=== PATIENT | male | born 1975 | race Caucasian/White ===

== ENCOUNTER 2018-04-18 19:32 | Emergency (ER) | payer OTHER ==
[2018-04-18 19:39] VITALS: BP 132/98; PULSE 61; TEMP 97.9; BMI 26.4
[2018-04-18 20:05] LABS: PH,URINE 6.5 (4.5-8); URINE APPEARANCE Slightly; URINE BILIRUBIN Negative (NEGATIVE); URINE COLOR Yellow; URINE GLUCOSE (UA) Negative (NEGATIVE); URINE KETONE Negative (NEGATIVE); URINE LEUK ESTERASE TRACE (NEGATIVE); URINE NITRITE Negative (NEGATIVE); URINE PROTEIN 2+ (NEGATIVE); URINE UROBILINOGEN 0.2 (0.2-1.0)
[2018-04-18 20:20] LABS: EPI CELLS FEW /HPF; URINE BACTERIA 1+ /hpf (NEGATIVE); URINE RBC 60-100 /hpf (0-3)
[2018-04-18] MEDS ORDERED: KETOROLAC TROMETHAMINE 30 MG/1 ML VIAL IVPUSH ONE (20:26)
[2018-04-18] MEDS ORDERED: SODIUM CHLORIDE 1,000 ML IV STA (20:26)
--- NOTE | 2018-04-18 20:26 | PDOC ---
History of Present Illness - General History Source: Patient Exam Limitations: No Limitations - History of Present Illness Initial Comments: 04/18/18 21:02 The patient is a 42 year old male with a past medical history of recurrent kidney stones (15 years)here today for evaluation of left flank and abdominal pain. The patient reports that his flank and abdominal pain began a few months ago and has been intermittent but notes that spicy food will cause his pain to flare up. The patient took zantac and pepto bismol which did not provide relief. The patient notes he has been having intermittent hematuria for the past two weeks and was told by his doctor that he has 2 kidney stones on his right side and 2 kidney stones on his left side. He also reports having episodes of constipation and diarrhea. Patient denies headache, lightheadedness. Denies fever, chills. Denies chest pain, shortness of breath. Denies nausea, vomiting, abdominal pain, history of ulcers. Denies lower extremity edema. Denies dysuria, changes in urinary frequency. Allergies: NKA PCP: Parvez Wolff <Denys Galeano - Last Filed: 04/18/18 21:02> <Leticia Pelaez - Last Filed: 04/19/18 04:02> - General Chief Complaint: Pain Stated Complaint: ABD PAIN Time Seen by Provider: 04/18/18 19:34 Past History <Denys Galeano - Last Filed: 04/18/18 21:02> - Past Medical History COPD: No Kidney Stones: Yes - Suicide/Smoking/Psychosocial Hx Smoking Status: No Smoking History: Never smoked Have you smoked in the past 12 months: No Number of Cigarettes Smoked Daily: 0 Information on smoking cessation initiated: No Hx Alcohol Use: No Drug/Substance Use Hx: No <Leticia Pelaez - Last Filed: 04/19/18 04:02> - Past Medical History Allergies/Adverse Reactions: Allergies Allergy/AdvReac Type Severity Reaction Status Date / Time No Known Allergies Allergy Verified 04/18/18 19:34 Home Medications: Ambulatory Orders Bismuth Subsalicylate [Pepto-Bismol -] 262 mg PO ONCE 04/18/18 Oxycodone HCl/Acetaminophen [Percocet 5-325 mg Tablet] 1 tab PO Q6H PRN #12 tablet MDD 3 tabs 01/05/19 Ranitidine HCl [Zantac] 150 mg PO ASDIR 04/18/18 Review of Systems - Review of Systems Able to Perform ROS?: Yes Comments:: 04/18/18 21:03 All systems are reviewed and negative except as noted in the HPI <Denys Galeano - Last Filed: 04/18/18 21:02> *Physical Exam - Vital Signs Last Vital Signs Temp Pulse Resp BP Pulse Ox 97.9 F 61 18 132/98 100 04/18/18 19:32 04/18/18 19:32 04/18/18 19:32 04/18/18 19:32 04/18/18 19:32 - Physical Exam Comments: 04/18/18 21:03 GENERAL: Awake, alert, and fully oriented, in no acute distress HEAD: No signs of trauma EYES: PERRLA, EOMI, sclera anicteric, conjunctiva clear ENT: Auricles normal inspection, hearing grossly normal, nares patent, oropharynx clear without exudates. Moist mucosa NECK: Normal ROM, supple, no lymphadenopathy, JVD, or masses LUNGS: Breath sounds equal, clear to auscultation bilaterally. No wheezes, and no crackles HEART: Regular rate and rhythm, normal S1 and S2, no murmurs, rubs or gallops ABDOMEN: +mild left lower quadrant and left flank tenderness. Soft, normoactive bowel sounds. No guarding, no rebound. No masses EXTREMITIES: Normal range of motion, no edema. No clubbing or cyanosis. No cords, erythema, or tenderness NEUROLOGICAL: Cranial nerves II through XII grossly intact. Normal speech, normal gait SKIN: Warm, Dry, normal turgor, no rashes or lesions noted. <Denys Galeano - Last Filed: 04/18/18 21:02> - Vital Signs Last Vital Signs Temp Pulse Resp BP Pulse Ox 97.9 F 61 18 132/98 100 04/18/18 19:32 04/18/18 19:32 04/18/18 19:32 04/18/18 19:32 04/18/18 19:32 <Leticia Pelaez - Last Filed: 04/19/18 04:02> Moderate Sedation - Procedure Monitoring Vital Signs: Procedure Monitoring Vital Signs Temperature 97.9 F 04/18/18 19:32 Pulse Rate 61 04/18/18 19:32 Respiratory Rate 18 04/18/18 19:32 Blood Pressure 132/98 04/18/18 19:32 O2 Sat by Pulse Oximetry (%) 100 04/18/18 19:32 <Denys Galeano - Last Filed: 04/18/18 21:02> - Procedure Monitoring Vital Signs: Procedure Monitoring Vital Signs Temperature 97.9 F 04/18/18 19:32 Pulse Rate 61 04/18/18 19:32 Respiratory Rate 18 04/18/18 19:32 Blood Pressure 132/98 04/18/18 19:32 O2 Sat by Pulse Oximetry (%) 100 04/18/18 19:32 <Leticia Pelaez - Last Filed: 04/19/18 04:02> ED Treatment Course - LABORATORY CBC & Chemistry Diagram: 04/18/18 20:35 04/18/18 20:35 - ADDITIONAL ORDERS Additional order review: Laboratory Results 04/18/18 20:02 Urine Color Yellow Urine Appearance Slightly Urine pH 6.5 Ur Specific [place] 1.020 Urine Protein 2+ H Urine Glucose (UA) Negative Urine Ketones Negative Urine Blood 3+ H Urine Nitrite Negative Urine Bilirubin Negative Urine Urobilinogen 0.2 Ur Leukocyte Esterase Trace H Urine RBC 60-100 Urine WBC 2-5 Ur Epithelial Cells Few Urine Bacteria 1+ 04/18/18 20:35 RBC 5.27 MCV 84.1 MCHC 32.3 RDW 13.3 MPV 7.6 Neutrophils % 66.4 D Lymphocytes % 23.5 D Monocytes % 7.4 Eosinophils % 2.3 Basophils % 0.4 - Medications Given in the ED: ED Medications Discontinued Medications Generic Name Dose Route Start Last Admin Trade Name Amber PRN Reason Stop Dose Admin Ketorolac Tromethamine 30 mg 04/18/18 20:26 04/18/18 20:42 Toradol Injection - IVPUSH 04/18/18 20:27 30 mg ONCE ONE Administration <Denys Galeano - Last Filed: 04/18/18 21:02> - LABORATORY CBC & Chemistry Diagram: 04/18/18 20:35 04/18/18 20:35 - ADDITIONAL ORDERS Additional order review: Laboratory Results 04/18/18 20:02 Urine Color Yellow Urine Appearance Slightly Urine pH 6.5 Ur Specific [place] 1.020 Urine Protein 2+ H Urine Glucose (UA) Negative Urine Ketones Negative Urine Blood 3+ H Urine Nitrite Negative Urine Bilirubin Negative Urine Urobilinogen 0.2 Ur Leukocyte Esterase Trace H Urine RBC 60-100 Urine WBC 2-5 Ur Epithelial Cells Few Urine Bacteria 1+ <Leticia Pelaez - Last Filed: 04/19/18 04:02> Progress Note - Progress Note Progress Note: Documentation has been prepared under my direction and personally reviewed by me in its entirety. I attest that this documented accurately reflects all work, treatment, procedures and medical decision making performed by me. <Leticia Pelaez - Last Filed: 04/19/18 04:02> *DC/Admit/Observation/Transfer - Attestations Scribe Attestion: 04/18/18 21:03 Documentation prepared by GISELA Martinez, acting as certified medical asst for Leticia Pelaez MD. <Denys Galeano - Last Filed: 04/18/18 21:02> <Leticia Pelaez - Last Filed: 04/19/18 04:02> Diagnosis at time of Disposition: Kidney stone on left side - Discharge Dispostion Disposition: HOME Condition at time of disposition: Stable - Prescriptions Prescriptions: Oxycodone HCl/Acetaminophen [Percocet 5-325 mg Tablet] 1 tab PO Q6H PRN #12 tablet MDD 3 tabs PRN Reason: Severe Pain - Referrals Referrals: Parvez Wolff MD [Primary Care Provider] - Frank Kendall MD., MD [Staff Physician] - - Patient Instructions Printed Discharge Instructions: Kidney Stones -- Adult Additional Instructions: Drink plenty of water Ibuprofen/naproxen/acetaminophen as needed for [id number] pain Percocet 5/325 up to 3 times a day as needed for severe pain Return to ER if you have persistent severe pain/vomiting/fever Follow-up with urologist () within the next 5 days; call office on April 20 to arrange appointment Follow-up with Dr. Wolff as scheduled - Post Discharge Activity
[2018-04-18] MEDS ORDERED: KETOROLAC TROMETHAMINE 30 MG/1 ML VIAL ONE (20:36)
[2018-04-18 20:50] LABS: BASO % 0.4 % (0-2.0); EOS % 2.3 % (0-4.5); HEMATOCRIT 44.3 % (35.4-49); HEMOGLOBIN 14.3 GM/dl (11.7-16.9); LYMPH % 23.5 % (8-40); MCH 27.2 pg (25.7-33.7); MCHC 32.3 g/dl (32.0-35.9); MEAN CELL VOLUME 84.1 fl (80-96); MEAN PLT VOLUME 7.6 fl (7.5-11.1); MONO % 7.4 % (3.8-10.2); NEUT % 66.4 % (42.8-82.8); PLATELET COUNT 244 K/MM3 (134-434); RBC 5.27 M/mm3 (4.00-5.60); RDW 13.3 % (11.9-15.9); WHITE BLOOD COUNT 7.8 K/mm3 (4.0-10.8)
[2018-04-18 21:05] LABS: ALBUMIN 4.3 g/dl (3.5-5.0); ALK PHOS 77 U/L (32-92); ANION GAP 4 MMOL/L (8-16); BILIRUBIN,TOTAL 0.4 mg/dl (0.2-1.0); BLOOD UREA NITROGEN 14 mg/dl (7-18); CHLORIDE 102 mmol/L (98-107); CO2 28 mmol/L (22-28); CREATININE 0.7 mg/dl (0.6-1.3); GLUCOSE,RANDOM 104 mg/dl (74-106); SGOT/AST 29 U/L (10-42); SGPT/ALT 61 U/L (10-40); SODIUM 134 mmol/L (136-145); TOT PROT 7.5 g/dl (6.4-8.3)
== END 2018-04-18 22:09 | disposition home or self-care (01) ==
LOC: FER 19:32
PROC: 3E0333Z Introduction of Anti-inflammatory into Peripheral Vein, Percutaneous Approach (ICD-10-PCS; principal; 2018-04-18)
PROC: 3E0337Z Introduction of Electrolytic and Water Balance Substance into Peripheral Vein, Percutaneous Approach (ICD-10-PCS; 2018-04-18)
DX: N20.0 Calculus of kidney (principal)
CPT/HCPCS: 36415; 74176; 80053; 81003; 81015; 85025; 99283-25; J7030

== ENCOUNTER 2021-07-05 05:10 | Day surgery (SDC) | payer OTHER ==
[2021-07-02 09:23] VITALS: BMI 27.3
[2021-07-05] MEDS ORDERED: ONDANSETRON 4 MG/2 ML VIAL IVPUSH PRN (12:41)
[2021-07-05] MEDS ORDERED: OXYMETAZOLINE 0.05% NASAL SOLUTION 15 ML BOTTLE NS SCH (12:45)
[2021-07-05] MEDS ORDERED: LACTATED RINGERS SOLUTION 1,000 ML IV SCH (12:45)
[2021-07-05 12:55] VITALS: TEMP 97.8
[2021-07-05 14:18] VITALS: BP 132/88; PULSE 73
== END 2021-07-05 14:28 | disposition home or self-care (01) ==
LOC: JASU-SURG 05:10
PROVIDERS: ATTEND Otolaryngology
PROC: 0CJS8ZZ Inspection of Larynx, Via Natural or Artificial Opening Endoscopic (ICD-10-PCS; principal; 2021-07-05 12:00)
DX: G47.33 Obstructive sleep apnea (adult) (pediatric) (principal)
CPT/HCPCS: 94760

== ENCOUNTER 2022-07-29 21:14 | Emergency (ER) | payer OTHER ==
[2022-07-29] MEDS ORDERED: FAMOTIDINE 20 MG/50 ML IVPB 20 MG/50 ML MG IVPB ONE ×2 (21:41→21:59)
[2022-07-29] MEDS ORDERED: MAG HYDROX/AL HYDROX/SIMETH 30 ML UNIT-DOSE CUP PO ONE (21:41)
[2022-07-29 21:56] VITALS: BP 130/72; PULSE 78; RESP 16; BMI 27.3
[2022-07-29] MEDS ORDERED: MAG HYDROX/AL HYDROX/SIMETH 30 ML UNIT-DOSE CUP ONE (22:00)
[2022-07-29 22:14] LABS: HEMATOCRIT 40.6 % (35.4-49); HEMOGLOBIN 13.8 G/dL (11.7-16.9); MCH 28.1 pg (25.7-33.7); MCHC 33.9 g/dl (32.0-35.9); MEAN CELL VOLUME 83.1 fl (80-96); MEAN PLT VOLUME 8.1 fl (7.5-11.1); PLATELET COUNT 179.1 10^3/uL (134-434); RBC 4.89 10^6/uL (4.00-5.60); WHITE BLOOD COUNT 6.2 10^3/uL (4.0-10.8)
[2022-07-29 22:20] LABS: INR 0.96 (0.83-1.09)
[2022-07-29 22:22] LABS: PLATELET ESTIMATE ADEQUATE
[2022-07-29 22:27] LABS: ALBUMIN 3.9 g/dl (3.4-5.0); BILIRUBIN,TOTAL 0.5 mg/dl (0.2-1); CALCIUM 9.1 mg/dl (8.5-10); CREATININE 0.9 mg/dl (0.55-1.3); TOT PROT 6.7 g/dl (6.4-8.2)
== END 2022-07-30 00:18 | disposition home or self-care (01) ==
LOC: FER 21:14
PROC: 3E033GC Introduction of Other Therapeutic Substance into Peripheral Vein, Percutaneous Approach (ICD-10-PCS; principal; 2022-07-29)
DX: R07.89 Other chest pain (principal); R06.02 Shortness of breath
CPT/HCPCS: 36415; 71045-TC-FY; 80053; 83690; 84484; 85027; 85379; 85610; 85730; 93005; 99285-25